=== PATIENT | female | born 1970 | race Caucasian/White ===

== ENCOUNTER → 2016-10-20 | Outpatient (CLI) | payer BC ==
--- NOTE | 2016-10-20 09:32 | NM ---
EXAMINATION TYPE: NM hepatobiliary w EF DATE OF EXAM: 10/20/2016 9:24 AM COMPARISON: NONE HISTORY: Pain TECHNIQUE: After the intravenous administration of 5.26 mCi Tc 99m Mebrofenin hepatobiliary scintigra phy is performed. Immediate images post injection. FINDINGS: There is satisfactory initial accumulation of tracer by the liver. The gallbladder is visualized wit hin 20 minutes. The small bowel activity is noted within 18 minutes. At one hour 8 ounces of oral e nsure plus is given to mimic CCK and gallbladder ejection fraction is calculated at 92 %, in the norm al range. Therefore there is no scintigraphic evidence of cystic or common bile duct obstruction to suggest acute cholecystitis or gallbladder dyskinesia. IMPRESSION: Findings suggest hypercontractile state of the gallbladder.
== END | disposition home or self-care (01) ==
LOC: RADNMMAIN 06:57
PROVIDERS: ATTEND Family Medicine
DX: R10.11 Right upper quadrant pain (principal)
CPT/HCPCS: 78226; A9537

== ENCOUNTER → 2018-03-14 | Outpatient (CLI) | payer BC ==
--- NOTE | 2018-03-14 10:26 | XR ---
EXAMINATION TYPE: XR wrist complete RT DATE OF EXAM: 03/14/2018 COMPARISON: NONE HISTORY: Right wrist pain TECHNIQUE: Three-view right wrist FINDINGS: No acute fractures are evident. Joint spaces appear preserved. Cyst appears to be within th e scaphoid. No osseous abnormality to account for ulnar side pain is evident. IMPRESSION: 1. No acute osseous abnormality.
== END | disposition home or self-care (01) ==
LOC: RADXRYALE 09:04
PROVIDERS: ATTEND Family Medicine
DX: M25.531 Pain in right wrist (principal)

== ENCOUNTER → 2024-01-12 | Outpatient (CLI) | payer BC ==
--- NOTE | 2024-01-14 06:16 | MR ---
EXAMINATION TYPE: MR knee LT wo con DATE OF EXAM: 01/12/2024 COMPARISON: NONE HISTORY: Left knee pain x 6 mos, S/P injury. TECHNIQUE: Multiplanar, multisequence images of the knee is performed without IV contrast. FINDINGS: MEDIAL MENISCUS: Medial extrusion of medial meniscus. Truncated appearance posterior horn with obliqu e signal extending to inferior articular surface sagittal image 26. LATERAL MENISCUS: Horizontal increased signal seen best on coronal images does not extend to articula r surface. CRUCIATE LIGAMENTS: The anterior and posterior cruciate ligaments are intact and unremarkable. COLLATERAL LIGAMENTS: The medial collateral ligament and lateral collateral ligament complex are inta ct and unremarkable. EXTENSOR MECHANISM: Visualized quadriceps and patellar tendons are intact. EFFUSION: Large size suprapatellar joint effusion. POPLITEAL CYST: Moderately sized multi septated popliteal/nunes cyst. TRICOMPARTMENT SPACES: Mild to moderate tricompartment joint space loss and spurring. CARTILAGE: Chondromalacia patella with cartilaginous loss along the posterior patellar pole cyst. Jose Manuel e cartilaginous loss medial and lateral tibiofemoral compartments BONE MARROW SIGNAL:. Central 1.2 cm T2 hyperintense lesion in the tibia favors a nonaggressive etiolo gy. OTHER: No additional significant abnormality is appreciated. IMPRESSION: 1. Full-thickness tear posterior horn medial meniscus. 2. Intrasubstance tear lateral meniscus. 3. Fairly moderate tricompartment degenerative changes as detailed above. 4. Large suprapatellar joint effusion. 5. Moderate size multiseptated popliteal cyst.
== END | disposition home or self-care (01) ==
LOC: RADMRIMAIN 07:59
PROVIDERS: ATTEND Family Medicine
DX: S83.242A Other tear of medial meniscus, current injury, left knee, initial encounter (principal); S83.282A Other tear of lateral meniscus, current injury, left knee, initial encounter; M17.12 Unilateral primary osteoarthritis, left knee

== ENCOUNTER → 2024-09-13 | Outpatient (CLI) | payer BC ==
--- NOTE | 2024-09-17 00:05 | MM ---
Reason for Exam: Screening (asymptomatic). Baseline mammogram. Patient History: Menarche at age 12. First Full-Term at age 26. Hysterectomy at age 26. Risk Values: Oriana 5 year model risk: 1.3%. NCI Lifetime model risk: 9.1%. Prior Study Comparison: Patient's first Mammogram. No prior studies available for comparison. Tissue Density: There are scattered areas of fibroglandular density. Findings: Analyzed By CAD. The pattern is symmetrical. No suspicious groups of microcalcifications, spiculated or lobular masses, architectural distortion or other secondary signs of malignancy are mammographically apparent. Overall Assessment: Negative, BI-RAD 1 Management: Screening Mammogram of both breasts in 1 year. A negative mammogram report should not preclude additional follow up of suspicious palpable abnormalities. Patient should continue monthly self breast exam. A clinical breast exam by your physician is recommended on an annual basis and results should be correlated with mammographic findings. Note on Oriana scores and lifetime risk: 1. A Oriana score greater than 3% is considered moderate risk. If this is the case, consider specialist referral to assess eligibility for a risk reducing agent. 2. If overall lifetime risk for the development of breast cancer is 20% or higher, the patient may qualify for future screening with alternating mammogram and breast MRI. [facility], , 09/17/2024 12:02 AM. Electronically signed and approved by: Leonel Jefferson D.O. Radiologis
== END | disposition home or self-care (01) ==
LOC: RADMAMWWP 07:41
PROVIDERS: ATTEND Family Medicine
DX: Z12.31 Encounter for screening mammogram for malignant neoplasm of breast (principal); R92.323 Mammographic fibroglandular density, bilateral breasts
CPT/HCPCS: 77067